=== PATIENT | female | born 1940 | race Hispanic/Latino ===

== ENCOUNTER 2020-03-25 06:31 | Day surgery (SDC) | payer MEDICARE ==
[2020-03-25 07:45] LABS: Basophils # (Auto) 0.1 K/mm3 (0.0-0.1); Basophils % (Auto) 0.9 % (0.0-1.8); Eosinophils # (Auto) 0.1 K/mm3 (0.0-0.4); Eosinophils % (Auto) 1.1 % (0.0-4.3); Hemoglobin 12.3 gm/dl (10.1-14.3); Lymphocytes # (Auto) 1.3 K/mm3 (1.2-5.4); Lymphocytes % (Auto) 11.8 % (13.4-35.0); Mean Corpuscular HGB Conc 32 % (30-34); Mean Corpuscular Volume 74 fl (79-97); Monocytes # (Auto) 0.8 K/mm3 (0.0-0.8); Monocytes % (Auto) 7.5 % (0.0-7.3); Platelet Count 285 K/mm3 (140-440); Red Blood Count 5.14 M/mm3 (3.65-5.03); Red Cell Distribution Width 18.6 % (13.2-15.2)
[2020-03-25 07:54] LABS: INR 1.01 (0.87-1.13)
[2020-03-25 07:55] LABS: Partial Thromboplastin Time 30.9 Sec. (24.2-36.6)
[2020-03-25] MEDS ORDERED: SODIUM CHLORIDE 0.9% 500 ML 500 ML IV SCH (08:00)
[2020-03-25] MEDS ORDERED: HEPARIN 10,000 UNITS/10 ML VIAL ONE (08:06)
[2020-03-25] MEDS ORDERED: HEPARIN/NS 5000 UNIT/500ML 0 ML IR ONE (08:06)
[2020-03-25] MEDS ORDERED: VERAPAMIL 5 MG/2 ML INJ ONE (08:07)
[2020-03-25] MEDS ORDERED: NITROGLYCERIN SYRINGE 0 ML ONE (08:07)
[2020-03-25] MEDS ORDERED: fentaNYL 100 MCG/2 ML INJ ONE (08:07)
[2020-03-25] MEDS ORDERED: MIDAZOLAM 2 MG/2 ML INJ ONE (08:07)
[2020-03-25] MEDS ORDERED: LIDOCAINE 1%/EPINEPHRINE 1:100,000 VIAL (20 ML) INFILTRATI ONE (08:08)
[2020-03-25 08:20] LABS: BUN/Creatinine Ratio 23; Blood Urea Nitrogen 14 mg/dL (7-17); Calcium 9.9 mg/dL (8.4-10.2); Hemolysis Index 0
[2020-03-25] MEDS ORDERED: METOPROLOL TARTRATE 5 MG/5 ML INJ IV ONE ×2 (08:43→08:45)
[2020-03-25] MEDS ORDERED: METOPROLOL TARTRATE 50 MG TAB ONE (08:43)
[2020-03-25] MEDS ORDERED: METOPROLOL TARTRATE 25 MG TAB PO ONE (08:44)
[2020-03-25] MEDS ORDERED: METOPROLOL TARTRATE 5 MG/5 ML INJ IV SCH (10:00)
--- NOTE | 2020-03-25 10:31 | Short Stay Summary ---
Short Stay Documentation Date of service: 03/25/20 Narrative H&P: 79-year-old female who presented for left lower extremity PVD with nonhealing ulceration who also has atrial fibrillation which was found to be in RVR today. - History Principal diagnosis: PVD with ulceration/RVR with atrial fibrillation H&P: obtained from office - Allergies and Medications Current Medications: Allergies Imidazole Alkylating Agents Allergy (Verified 03/25/20 07:22) Rash quaternium Allergy (Verified 03/25/20 07:22) Rash Sulfa (Sulfonamide Antibiotics) Allergy (Verified 03/25/20 07:21) Rash Home Medications Medication Instructions Recorded Confirmed Last Taken Type Clopidogrel [Plavix] 75 mg PO DAILY 03/25/20 03/25/20 03/24/20 History 75 mg Furosemide [Lasix TAB] 40 mg PO DAILY 03/25/20 03/25/20 03/24/20 History 40 mg Lovastatin [Altoprev] 40 mg PO HS 03/25/20 03/25/20 03/24/20 History 40 mg Metoprolol Xl [Metoprolol 25 mg PO BID 03/25/20 03/25/20 03/25/20 04:15 History SUCCINATE ER TAB] Metoprolol [Lopressor TAB] 50 mg PO BID #60 tablet 03/25/20 Unknown Rx Multivit-Min/FA/Lycopen/Lutein 1 tab PO DAILY 03/25/20 03/25/20 03/24/20 History [Centrum Silver Tablet] 1 tab NIFEdipine [Nifedipine ER] 60 mg PO DAILY 03/25/20 03/25/20 03/25/20 04:15 History 60 mg Rivaroxaban [Xarelto] 20 mg PO QDAY 03/25/20 03/25/20 03/23/20 History 20 mg Active Medications Sodium Chloride (Nacl 0.9% 500 Ml) 500 mls @ 50 mls/hr IV DIRECT DARRELL Metoprolol Tartrate (Metoprolol) 5 mg IV ONCE DARRELL Stop: 03/25/20 12:00 Last Admin: 03/25/20 09:31 Dose: 5 mg Documented by: - Physical exam General appearance: no acute distress Lungs: Normal air movement Heart: Other (Rapid ventricular rate with atrial fibrillation) Gastrointestinal: normal - Hospital course Hospital course: Due to atrial fibrillation with rapid ventricular rate, cardiology was consulted and Dr. Wang of [facility] saw the patient and tried to provide p.o. metoprolol and IV metoprolol to attempt to control rate. This was performed twice and ultimately achieved some control as the patient went from heart rate into 130s to 100s to 110s. Heart rate is not stable for procedure. Procedure was canceled. Dr. Camargo, outpatient storeroom keeper, was contacted and informed. Recommended to family to follow-up with Dr. Camargo within the week for A. fib with RVR. Patient is anticoagulated. We will plan on revascularization in 3 weeks after cardiac optimization. 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 Increase metoprolol from 25 mg to 50 mg p.o. twice daily and discontinue nifedipine. Dr. Roland of [facility] and Dr. Camargo are aware and developed the plan. ) Additional Instructions: Follow up with DR Camargo this week Follow up with: JONES NICE MD [Primary Care Provider] - 7 Days Prescriptions: Metoprolol [Lopressor TAB] 50 mg PO BID #60 tablet
[2020-03-25 10:44] VITALS: BP 122/60
== END 2020-03-25 11:25 | disposition home or self-care (01) ==
LOC: CATHLABREC 06:31
PROVIDERS: ATTEND Radiology Diagnostic Radiology
DX: I70.245 Atherosclerosis of native arteries of left leg with ulceration of other part of foot (principal); I83.213 Varicose veins of right lower extremity with both ulcer of ankle and inflammation; L97.311 Non-pressure chronic ulcer of right ankle limited to breakdown of skin; Z53.8 Procedure and treatment not carried out for other reasons; I48.91 Unspecified atrial fibrillation; E78.00 Pure hypercholesterolemia, unspecified; M19.90 Unspecified osteoarthritis, unspecified site; Z88.2 Allergy status to sulfonamides; Z79.899 Other long term (current) drug therapy; Z88.8 Allergy status to other drugs, medicaments and biological substances; Z87.891 Personal history of nicotine dependence; Z98.49 Cataract extraction status, unspecified eye; Z90.49 Acquired absence of other specified parts of digestive tract; Z85.828 Personal history of other malignant neoplasm of skin; Z98.890 Other specified postprocedural states; Z82.49 Family history of ischemic heart disease and other diseases of the circulatory system
CPT/HCPCS: 36415; 80048; 85025; 85610; 85730; 93005; 96374; 96376; J1644; J2250; J3010

== ENCOUNTER 2020-04-22 06:04 | Day surgery (SDC) | payer MEDICARE ==
[2020-04-22] MEDS ORDERED: SODIUM CHLORIDE 0.9% 500 ML 500 ML ONE (07:53)
[2020-04-22 07:57] LABS: Basophils # (Auto) 0.1 K/mm3 (0.0-0.1); Basophils % (Auto) 0.5 % (0.0-1.8); Eosinophils # (Auto) 0.1 K/mm3 (0.0-0.4); Hematocrit 31.8 % (30.3-42.9); Hemoglobin 10.3 gm/dl (10.1-14.3); Lymphocytes # (Auto) 1.1 K/mm3 (1.2-5.4); Lymphocytes % (Auto) 10.5 % (13.4-35.0); Mean Corpuscular HGB Conc 32 % (30-34); Mean Corpuscular Volume 74 fl (79-97); Monocytes # (Auto) 0.7 K/mm3 (0.0-0.8); Monocytes % (Auto) 6.3 % (0.0-7.3); Platelet Count 284 K/mm3 (140-440); Red Blood Count 4.28 M/mm3 (3.65-5.03); Red Cell Distribution Width 18.2 % (13.2-15.2)
[2020-04-22 08:08] LABS: INR 1.08 (0.87-1.13)
[2020-04-22 08:09] LABS: Partial Thromboplastin Time 35.3 Sec. (24.2-36.6)
[2020-04-22] MEDS: SODIUM CHLORIDE 0.9% 500 ML 500 ML IV SCH ×2 (08:25→10:00)
[2020-04-22 09:18] LABS: BUN/Creatinine Ratio 30; Blood Urea Nitrogen 18 mg/dL (7-17); Calcium 9.9 mg/dL (8.4-10.2); Hemolysis Index 0
[2020-04-22] MEDS ORDERED: HEPARIN/NS 5000 UNIT/500ML 1,000 ML IR ONE (09:29)
[2020-04-22] MEDS ORDERED: LIDOCAINE 1%/EPINEPHRINE 1:100,000 VIAL (20 ML) INFILTRATI ONE (09:29)
[2020-04-22] MEDS: fentaNYL 100 MCG/2 ML INJ ONE ×6 (10:06→11:27)
[2020-04-22] MEDS: MIDAZOLAM 2 MG/2 ML INJ ONE ×6 (10:06→11:27)
[2020-04-22] MEDS ORDERED: VERAPAMIL 5 MG/2 ML INJ ONE (10:07)
[2020-04-22] MEDS: NITROGLYCERIN SYRINGE 3 ML ONE ×2 (10:14→10:19)
[2020-04-22] MEDS: HEPARIN 10,000 UNITS/10 ML VIAL ONE ×3 (10:19→11:15)
[2020-04-22] MEDS: VERAPAMIL 5 MG/2 ML INJ ONE ×2 (10:41→11:35)
[2020-04-22] MEDS ORDERED: ceFAZolin/Water 2 GM/20 ML 2 GM/20 ML SYRINGE IV ONE (11:45)
--- NOTE | 2020-04-22 12:07 | Short Stay Summary ---
Short Stay Documentation Date of service: 04/22/20 Narrative H&P: 79-year-old female with peripheral vascular disease of the left lower extremity with multiphasic waveforms of the left iliac artery which changed to monophasic waveforms of the left lower extremity with transition in the left common femoral artery with nonhealing left lower extremity ulceration. - History Principal diagnosis: PVD with ulceration H&P: obtained from office Past Medical History: atrial fib, arrhythmia, CAD, hypertension Past Surgical History: Other (bilateral ROSA, right AKA, right multiple bypasses, left endovascular revascularization and vein closures) - Allergies and Medications Current Medications: Allergies Imidazole Alkylating Agents Allergy (Verified 03/25/20 07:22) Rash quaternium Allergy (Verified 03/25/20 07:22) Rash Sulfa (Sulfonamide Antibiotics) Allergy (Verified 03/25/20 07:21) Rash Home Medications Medication Instructions Recorded Confirmed Last Taken Type Clopidogrel [Plavix] 75 mg PO DAILY 03/25/20 04/22/20 04/21/20 History 75 mg Furosemide [Lasix TAB] 40 mg PO DAILY 03/25/20 04/22/20 04/21/20 History 40 mg Lovastatin [Altoprev] 40 mg PO HS 03/25/20 04/22/20 04/21/20 History 40 mg Multivit-Min/FA/Lycopen/Lutein 1 tab PO DAILY 03/25/20 04/22/20 04/21/20 History [Centrum Silver Tablet] 1 Rivaroxaban [Xarelto] 20 mg PO QDAY 03/25/20 04/22/20 04/19/20 History 20 mg Metoprolol [Lopressor TAB] 50 mg PO DAILY 04/22/20 04/22/20 04/22/20 History 50 mg Potassium Chloride [K-Dur] 10 meq PO DAILY 04/22/20 04/22/20 04/21/20 History 10 meq Active Medications Sodium Chloride (Nacl 0.9% 500 Ml) 500 mls @ 50 mls/hr IV DIRECT DARRELL Last Admin: 04/22/20 10:00 Dose: 50 mls/hr Documented by: - Physical exam General appearance: no acute distress HEENT: EOMI Lungs: Normal air movement Heart: Regular rate Gastrointestinal: normal, other (bilateral hip pain, left worse than right, chronic) Extremities: normal temperature - Brief post op/procedure progress note Date of procedure: 04/22/20 Pre-op diagnosis: Left PVD with ulceration Post-op diagnosis: same Procedure: 1. Ultrasound guided access of the left radial artery 2. Selection of the descending thoracic aorta, and abdominal aorta with angiography of the abdominal aorta. 3. Selection of the left external iliac artery, common femoral artery and superficial femoral artery with angiography 4. IVUS of the left superficial femoral artery, common femoral artery, external iliac artery and common iliac artery 5. Fluoroscopic guided placement of a 7 mm spider EPD in the left superficial femoral artery 6. Atherectomy of the left common femoral artery with a [employer] M device, and angioplasty with a 6 mm x 100 mm angiosculpt. 7. Angioplasty of the left common femoral artery with a 6 mm x 80 mm Stellarex angioplasty balloon 8. Capture of the embolic protection device 9. Removal of the sheath with placement of a left radial TR band Anesthesia: local (w/ conscious sedation) Surgeon: CROW GLASER Estimated blood loss: minimal Condition: stable - Hospital course Hospital course: Patient tolerated procedure well. No immediate postprocedural complications. Patient was discharged after procedure was complete and TR band was removed. 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 Start taking Xarelto 04/23/2020. Follow up with: JONES NICE MD [Primary Care Provider] - 7 Days Forms: Post Arteriogram Instruct Prescriptions: Ciprofloxacin HCl [Ciprofloxacin TAB] 500 mg PO Q12HR #20 tab L. Acidophilus/L. Rhamnosus [Probiotic 15 Billion Cell Cap] 1 each PO DAILY #30 capsule Pantoprazole [Protonix TAB] 20 mg PO DAILY #30 tablet.
--- NOTE | 2020-04-22 12:21 | Operative Report ---
Operative Report Operative Report: EXAM: 1. Ultrasound guided access of the left radial artery 2. Selection of the descending thoracic aorta, and abdominal aorta with angiography of the abdominal aorta. 3. Selection of the left external iliac artery, common femoral artery and superficial femoral artery with angiography 4. IVUS of the left superficial femoral artery, common femoral artery, external iliac artery and common iliac artery 5. Fluoroscopic guided placement of a 7 mm spider EPD in the left superficial femoral artery 6. Atherectomy of the left common femoral artery with a [employer] M device, and angioplasty with a 6 mm x 100 mm angiosculpt. 7. Angioplasty of the left common femoral artery with a 6 mm x 80 mm Stellarex angioplasty balloon 8. Capture of the embolic protection device 9. Removal of the sheath with placement of a left radial TR band DATE: 04/22/2020 [employer] CONSULTANT: CROW GLASER MD INDICATION: PVD with nonhealing ulceration of the left lower extremity requiring endovascular revascularization. Risks, benefits, and alternatives discussed. MEDICATIONS: Please see nursing report for full details. DEVICES: 7 mm spider embolic protection device 6 mm x 80 mm Stellerex angioplasty balloon 6 mm x 100 mm angiosculpt Hawkone M device IVUS 0.018, volcano CONTRAST: Please see catheter report for full details. PROCEDURE: The risks, benefits, and alternatives were discussed with the patient; written informed consent was obtained. The left wrist and the left groin was prepped and draped in a sterile fashion. Ultrasound was used to evaluate the left radial artery which was patent. Under direct ultrasound guidance, the left radial artery was accessed with a single puncture technique with a 21-gauge micropuncture needle. 0.018 inch wire was passed into the radial artery. Needle was exchanged for 6 glide sheath slender. Radial cocktail was administered. Bentson wire and pigtail catheter were used to select the descending thoracic aorta and the abdominal aorta. Digital subtraction angiography was performed in the abdominal aorta. Catheter was exchanged for an angled catheter used to select the left external iliac artery, left common femoral artery, and left superficial femoral artery and digital subtraction angiography was performed. 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 The right common femoral artery and profundofemoral artery is patent. The right superficial femoral artery is occluded. The left common femoral artery has a focal area of possible narrowing at the midportion of the vessel. The left profundofemoral artery is patent. The left proximal superficial femoral artery has 20 to 30% narrowing. The left midportion and distal portion of the superficial femoral artery is patent. The [id number] popliteal artery has a 50% narrowing at 2 locations. The mid and below the knee popliteal artery is patent. There is three-vessel flow off runoff to the foot. At this time, the patient was further heparinized, and nitroglycerin and verapamil were injected through the sheath. Sheath was exchanged for a 6 [place] 105 cm glide sheath slender which was passed into the left common iliac artery. Wire was then exchanged for a 0.014 inch Choice PT support wire passed into the left superficial femoral artery. Intravascular ultrasound was then performed of left superficial femoral artery at the midportion up, left common femoral artery, left external iliac artery and left common iliac artery. Intravascular ultrasound demonstrated 20 to 30% narrowing of the left proximal superficial femoral artery, a focal 60% narrowing of the left mid common femoral artery, and patency of the left external iliac artery and common iliac artery. After reviewing the intravascular ultrasound, I decided the patient required left common femoral artery intervention. 7 mm spider embolic detection device was then deployed in the left mid superficial femoral artery using the [id number] technique. [employer] M device was then used to perform atherectomy of the left mid common femoral artery lesion. Afterwards, 6 mm x 100 mm angiosculpt device was used to perform angioplasty of the left common femoral artery lesion. Afterwards, 6 mm x 80 mm Stellerex balloon was used to perform angioplasty of the left common femoral artery lesion. Digital subtraction angiography was performed demonstrating less than 20% residual narrowing of the left common femoral artery focal narrowing. At this point, the embolic protection device was retrieved. Afterwards, the sheath was then retracted to the left radial artery and further verapamil and nitroglycerin was injected. Afterwards, the sheath was then removed and TR band was applied. There is immediate hemostasis. Patient tolerated the procedure well. No immediate postprocedural complication. FINDINGS: Please see procedure note above. IMPRESSION: 1. Successful atherectomy and angioplasty of the left common femoral artery. 2. Successful angiography of the left lower extremity. 3. Successful intravascular ultrasound of the left lower extremity. 4. Successful ultrasound-guided access of the left radial artery with TR band closure.
[2020-04-22] MEDS ORDERED: HYDROcodone/ACETAMINOPHEN 5-325 MG TAB PO PRN (12:30)
[2020-04-22 13:44] VITALS: BP 109/27
[2020-04-22] MEDS ORDERED: CLOPIDOGREL 75 MG TAB ONE (14:37)
== END 2020-04-22 14:30 | disposition home or self-care (01) ==
LOC: CATHLABREC 06:04
PROVIDERS: ATTEND Radiology Diagnostic Radiology
DX: I70.245 Atherosclerosis of native arteries of left leg with ulceration of other part of foot (principal); I83.213 Varicose veins of right lower extremity with both ulcer of ankle and inflammation; L97.311 Non-pressure chronic ulcer of right ankle limited to breakdown of skin; I48.91 Unspecified atrial fibrillation; E78.00 Pure hypercholesterolemia, unspecified; I10 Essential (primary) hypertension; M19.90 Unspecified osteoarthritis, unspecified site; Z88.2 Allergy status to sulfonamides; Z88.8 Allergy status to other drugs, medicaments and biological substances; Z79.899 Other long term (current) drug therapy; Z98.49 Cataract extraction status, unspecified eye; Z98.890 Other specified postprocedural states; Z90.49 Acquired absence of other specified parts of digestive tract; Z82.49 Family history of ischemic heart disease and other diseases of the circulatory system
CPT/HCPCS: 36415; 37225; 37252; 75625; 75710; 76937; 80048; 85025; 85610; 85730; 99156; 99157; C1714; C1725; C1769; C1884; C1894; J0690; J1644; J2250; J3010; J7040; Q9967